=== PATIENT | female | born 1955 | race Caucasian/White ===

== ENCOUNTER 2018-05-30 10:03 | Emergency (ER) | payer OTHER ==
[2018-05-30 10:38] VITALS: BP 112/73
[2018-05-30 11:30] LABS: Influenza A Molecular POSITIVE (Negative)
--- NOTE | 2018-05-30 11:59 | UC ---
FLU HPI - HPI Summary HPI Summary: 63 yo female presents with sinus congestion, chest congestion, cough, body aches , fatigue, and headache for the last 3-4 days. She has been very tired and all she wants to do is lay in bed. She usually smokes heavily daily, but has not been the last few days due to this illness. She has not taken anything OTC for her discomfort. Unsure if she has had a fever, but has felt hot/cold. Denies SOB , chest pain, abdominal pain, n/v, dysuria - History of Current Complaint Chief Complaint: UCGeneralIllness Stated Complaint: FLU LIKE SYMP Time Seen by Provider: 05/30/18 11:58 Hx Obtained From: Patient Onset/Duration: Sudden Onset Severity Currently: Severe Severity Initially: Severe Pain Intensity: 8 Pain Scale Used: 0-10 Numeric - Allergy/Home Medications Allergies/Adverse Reactions: Allergies Allergy/AdvReac Type Severity Reaction Status Date / Time ampicillin Allergy Severe seizures Verified 05/30/18 10:39 Penicillins Allergy Severe seizures Verified 05/30/18 10:39 tetracycline Allergy Severe seizures Verified 05/30/18 10:39 PMH/Surg Hx/FS Hx/Imm Hx Psychological History: Bipolar Disorder - Surgical History Surgical History: Yes Surgery Procedure, Year, and Place: appendex removed at age 15 ... hysterectomy - Social History Occupation: Employed Full-time Lives: With Family Alcohol Use: None Substance Use Type: None Smoking Status (MU): Heavy Every Day Tobacco Smoker Review of Systems All Other Systems Reviewed And Are Negative: Yes Constitutional: Positive: Fatigue, Other - Body aches Skin: Positive: Negative Eyes: Positive: Negative ENT: Positive: Sore Throat, Nasal Discharge, Sinus Congestion, Sinus Pain/ Tenderness Respiratory: Positive: Cough Cardiovascular: Positive: Negative Gastrointestinal: Positive: Negative Neurovascular: Positive: Negative Neurological: Positive: Negative Psychological: Positive: Negative Physical Exam - Summary Physical Exam Summary: GENERAL: NAD. WDWN. No pain distress. SKIN: No rashes, sores, lesions, or open wounds. HEENT: Head: AT/NC Eyes: EOM intact. Conjunctiva clear without inflammation or discharge. Ears: Hearing grossly normal. TMs intact, no bulging, erythema, or edema. Nose: Nasal mucosa pink and moist. NTTP maxillary and frontal sinus. Throat: Posterior oropharynx without exudates, erythema, or tonsillar enlargement. Uvula midline. NECK: Supple. Nontender. No lymphadenopathy. CHEST: CTAB. No r/r/w. No accessory muscle use. Breathing comfortably and in no distress. CV: RRR. Without m/r/g. Pulses intact. Cap refill <2seconds NEURO: Alert. PSYCH: Age appropriate behavior. Triage Information Reviewed: Yes Vital Signs: Initial Vital Signs Temp 96.3 F 05/30/18 10:33 Pulse 83 05/30/18 10:33 Resp 22 05/30/18 10:33 BP 112/73 05/30/18 10:33 Pulse Ox 97 05/30/18 10:33 Laboratory Tests 05/30/18 11:25 Influenza A (Rapid) Positive A Vital Signs Reviewed: Yes Flu Course/Dx - Course Course Of Treatment: POC flu positive. Rx for tamiflu. Advised to rest and drink plenty of fluids. Take tylenol for fever or discomfort. F/u if symptoms do not improve - Differential Dx/Diagnosis Provider Diagnosis: Influenza Discharge - Sign-Out/Discharge Documenting (check all that apply): Patient Departure All imaging exams completed and their final reports reviewed: No Studies - Discharge Plan Condition: Stable Disposition: HOME Prescriptions: Oseltamivir CAP* [Tamiflu CAP*] 75 mg PO BID #10 cap Patient Education Materials: Influenza (ED) Referrals: Joo Caputo MD [Primary Care Provider] - Additional Instructions: If you develop a fever, shortness of breath, chest pain, new or worsening symptoms - please call your PCP or go to the ED. - Billing Disposition and Condition Condition: STABLE Disposition: Home - Attestation Statements Provider Attestation: Per institutional requirements, I have reviewed the chart, however, I was not consulted specifically or made aware of this patient by the midlevel provider. I did not personally evaluate, interact with , or disposition this patient.
== END 2018-05-30 12:18 | disposition home or self-care (01) ==
LOC: UCEAST 10:03
DX: J10.1 Influenza due to other identified influenza virus with other respiratory manifestations (principal); F31.9 Bipolar disorder, unspecified; Z88.1 Allergy status to other antibiotic agents; Z88.0 Allergy status to penicillin; F17.200 Nicotine dependence, unspecified, uncomplicated
CPT/HCPCS: 99212; G0463